=== PATIENT | female | born 1960 | race Caucasian/White ===

== ENCOUNTER 2017-09-08 04:28 | Emergency (ER) | payer MEDICARE ==
--- OUTSIDE RECORDS SUMMARY | 2017-09-08 04:31 | XMS REPORT ---
:1960 Author Organization eClinicalWorks Care Team Providers Name Role Phone Mynor Erwin Provider Role Unavailable Allergies No Known Allergies Problems Problem Type Condition Code Onset Dates Condition Status Problem Hypercholesteremia E78.00 Active Problem Osteoarthritis of knee M17.9 Active Problem Internal hemorrhoids K64.8 Active Problem Asthma J45.909 Active Problem Depression F32.9 Active Problem Anxiety F41.9 Active Problem Diabetes type 2, controlled E11.9 Active Problem Bipolar disorder F31.9 Active Problem Chronic pancreatitis K86.1 Active Problem Colonic polyp K63.5 Active Assessment Primary insomnia F51.01 Active Assessment Depression F32.9 Active Assessment Bipolar disorder F31.9 Active Assessment Diabetes type 2, controlled E11.9 Active Assessment Asthma J45.909 Active Problem Primary insomnia F51.01 Active Assessment Hypercholesteremia E78.00 Active Problem Diverticulosis of colon without K57.30 Active diverticulitis Medications Medication Code Code Instructions Start End Status Dosage System Date Date Geodon [facility] 08547080629 80 MG Orally Active 1 capsule Twice a day with food Benztropine ND 66646368950 2 MG Orally Once Active 1 tablet Mesylate a day at bedtime Vistaril ND 85071836985 25 MG Orally Active 1 capsule every 8 hrs as needed Trazodone HCl ND 25962724793 50 MG Orally Active 1 tablet Once a day at bedtime as needed Ventolin HFA [facility] 33643801586 90 MCG/ACT Active 2 puffs as Inhalation every needed 6 hrs Results No Known Results Summary Purpose eClinicalWorks Submission
[2017-09-08] MEDS ORDERED: NA CHLORIDE 0.9% 1,000 ML ONE (04:59)
[2017-09-08 05:22] LABS: Absolute Lymphocytes (CBC) 1.2 K/uL (0.7-4.9); Absolute Monocytes 0.3 K/uL (0.1-1.3); Absolute Neutrophil 6.7 K/uL (1.8-8.0); Basophils % 0.2 % (0-1.3); Hematocrit 37.5 % (36.0-45.0); Lymphocytes % 14.2 % (15.3-44.8); MCH 32.2 pg (27.0-35.0); MCV 95.1 fL (80-100); MPV 7.6 fL (7.6-11.3); RBC Red Blood Cell Count 3.95 M/uL (3.86-4.86)
[2017-09-08 05:35] LABS: Potassium 3.8 mEq/L (3.6-5.0)
[2017-09-08 05:41] LABS: Albumin 3.7 g/dL (3.2-5.5); Bilirubin Direct 0.1 mg/dL (0-0.2); Bilirubin Total 0.6 mg/dL (0.3-1.2); Protein, Total 6.7 g/dL (6.0-8.3)
--- NOTE | 2017-09-08 05:54 | ER ---
Nurse's Notes [facility] Name: Torie Das Age: 57 yrs Sex: Female : 1960 Arrival Date: 09/08/2017 Time: 04:38 Bed 15 Private MD: Diagnosis: Abdominal pain Presentation: 09/08 04:26 Presenting complaint: EMS states: "Patient c/o abdominal street that started last night bs1 around 2200, reports nausea and diarrhea, denies vomiting, blood pressure 99/66.". Transition of care: patient was not received from another setting of care. Onset of symptoms was September 07, 2017 at 22:00. Risk Assessment: Do you want to hurt yourself or someone else? Patient reports no desire to harm self or others. Initial Sepsis Screen: Does the patient meet any 2 criteria? No. Patient's initial sepsis screen is negative. Does the patient have a suspected source of infection? No. Patient's initial sepsis screen is negative. Care prior to arrival: Glucose check: 137. 04:26 Method Of Arrival: EMS: [facility] bs1 04:26 Acuity: PRISCILA 3 bs1 Historical: - Allergies: 04:43 Nubain; bs1 04:43 Sudafed; bs1 - Home Meds: 04:43 Benztropine Mesylate Oral [Active]; Geodon 160 mg at night and 20 mg in the morning bs1 Oral [Active]; Trazodone Oral [Active]; Hydroxyzine Oral [Active]; - PMHx: 04:43 Bipolar disorder; Diabetes - NIDDM; Pancreatitis; bs1 - PSHx: 04:43 Cholecystectomy; Appendectomy; Tonsillectomy; bs1 - Immunization history:: Adult Immunizations not up to date. - Social history:: Smoking status: Patient/guardian denies using tobacco. - Ebola Screening: : Patient negative for fever greater than or equal to 101.5 degrees Fahrenheit, and additional compatible Ebola Virus Disease symptoms Patient denies exposure to infectious person. Screenin:44 Abuse screen: Denies threats or abuse. Denies injuries from another. Nutritional bs1 screening: No deficits noted. Tuberculosis screening: No symptoms or risk factors identified. Fall Risk None identified. Assessment: 04:45 General: Appears in no apparent distress. uncomfortable, unkempt, Behavior is bs1 cooperative, anxious. Pain: Complains of pain in bilateral lower abdomen Pain does not radiate. Neuro: Level of Consciousness is awake, alert, obeys commands, Oriented to person, place, time. Cardiovascular: Denies chest pain, shortness of breath, Heart tones S1 S2 present Capillary refill < 3 seconds Patient's skin is warm and dry. Respiratory: Airway is patent Trachea midline Respiratory effort is even, unlabored, Respiratory pattern is regular, symmetrical, Breath sounds are clear bilaterally. GI: Abdomen is flat, non-distended, Bowel sounds present X 4 quads. Abd is soft X 4 quads Abdomen is tender to palpation in right lower quadrant and left lower quadrant Reports lower abdominal pain, diarrhea, nausea. : No signs and/or symptoms were reported regarding the genitourinary system. EENT: No signs and/or symptoms were reported regarding the EENT system. Derm: Skin is intact, Skin is pink, warm \\T\\ dry. Musculoskeletal: Circulation, motion, and sensation intact. Capillary refill < 3 seconds, Range of motion: intact in all extremities. 05:45 Reassessment: Patient appears in no apparent distress at this time. Patient and/or bs1 family updated on plan of care and expected duration. Pain level reassessed. Patient is alert, oriented x 3, equal unlabored respirations, skin warm/dry/pink. 06:15 Reassessment: Patient appears in no apparent distress at this time. Patient and/or bs1 family updated on plan of care and expected duration. Pain level reassessed. Patient is alert, oriented x 3, equal unlabored respirations, skin warm/dry/pink. Patient states symptoms have improved. Vital Signs: 04:30 BP 96 / 70; Pulse 63; Resp 15; Temp 97.8(O); Pulse Ox 97% on R/A; Weight 65.77 kg; bs1 Height 5 ft. 5 in. (165.10 cm); Pain 8/10; 05:30 BP 109 / 66; Pulse 55; Resp 16; Pulse Ox 97% on R/A; bs1 06:05 BP 115 / 70; Pulse 53; Resp 16; Pulse Ox 99% on R/A; Pain 3/10; bs1 04:30 Body Mass Index 24.13 (65.77 kg, 165.10 cm) bs1 ED Course: 04:38 Patient arrived in ED. bs1 04:40 Kulkarni, Pin, MD is Attending Physician. pkl 04:41 Triage completed. bs1 04:44 Patient has correct armband on for positive identification. Bed in low position. Call bs1 light in reach. Side rails up X 1. Pulse ox on. NIBP on. Warm blanket given. Pillow given. 04:47 Arm band placed on left wrist. bs1 04:56 Eunice Malhotra, RN is Primary Nurse. bs1 05:05 Inserted saline lock: 20 gauge in left antecubital area, using aseptic technique. Blood bs1 collected. 06:15 No provider procedures requiring assistance completed. IV discontinued, bleeding bs1 controlled, No redness/swelling at site. Pressure dressing applied. Administered Medications: 05:08 Drug: NS 0.9% 1000 ml Route: IV; Rate: 1000 ml; Site: left antecubital; bs1 06:15 Follow up: IV Status: Completed infusion bs1 Outcome: 05:54 Discharge ordered by . pkl 06:16 Discharged to home ambulatory. bs1 06:16 Condition: stable 06:16 Discharge instructions given to patient, Instructed on discharge instructions, follow up and referral plans. Demonstrated understanding of instructions, follow-up care. 06:17 Patient left the ED. bs1 Signatures: Mati Kulkarni MD MD pkEunice Phan, RN RN bs1
--- NOTE | 2017-09-08 05:54 | EDPHYS ---
Physician Documentation [facility] Name: Torie Das Age: 57 yrs Sex: Female : 1960 Arrival Date: 09/08/2017 Time: 04:38 Bed 15 Private MD: ED Physician Mati Kulkarni HPI: 09/08 04:46 This 57 yrs old Female presents to ER via EMS with complaints of Abd Pain > pkl 50 y/o. 04:46 The patient presents with abdominal pain in the upper abdomen. Onset: The pkl symptoms/episode began/occurred just prior to arrival, 6 hour(s) ago. The symptoms do not radiate. Associated signs and symptoms: Pertinent positives: diarrhea. Historical: - Allergies: 04:43 Nubain; bs1 04:43 Sudafed; bs1 - Home Meds: 04:43 Benztropine Mesylate Oral [Active]; Geodon 160 mg at night and 20 mg in the morning bs1 Oral [Active]; Trazodone Oral [Active]; Hydroxyzine Oral [Active]; - PMHx: 04:43 Bipolar disorder; Diabetes - NIDDM; Pancreatitis; bs1 - PSHx: 04:43 Cholecystectomy; Appendectomy; Tonsillectomy; bs1 - Immunization history:: Adult Immunizations not up to date. - Social history:: Smoking status: Patient/guardian denies using tobacco. - Ebola Screening: : Patient negative for fever greater than or equal to 101.5 degrees Fahrenheit, and additional compatible Ebola Virus Disease symptoms Patient denies exposure to infectious person. ROS: 04:46 Eyes: Negative for injury, pain, redness, and discharge, ENT: Negative for injury, pkl pain, and discharge, Neck: Negative for injury, pain, and swelling, Cardiovascular: Negative for chest pain, palpitations, and edema, Respiratory: Negative for shortness of breath, cough, wheezing, and pleuritic chest pain. 04:46 Abdomen/GI: Positive for abdominal pain, diarrhea, of the right upper quadrant and left upper quadrant. 04:46 Back: Negative for acute changes. 04:46 : Negative for urinary symptoms. 04:46 MS/extremity: Negative for acute changes. 04:46 Skin: Negative for rash. 04:46 Neuro: Negative for altered mental status. Exam: 04:46 Head/Face: Normocephalic, atraumatic. Eyes: Pupils equal round and reactive to light, pkl extra-ocular motions intact. Lids and lashes normal. Conjunctiva and sclera are non-icteric and not injected. Cornea within normal limits. Periorbital areas with no swelling, redness, or edema. ENT: Nares patent. No nasal discharge, no septal abnormalities noted. Tympanic membranes are normal and external auditory canals are clear. Oropharynx with no redness, swelling, or masses, exudates, or evidence of obstruction, uvula midline. Mucous membranes moist. Neck: Trachea midline, no thyromegaly or masses palpated, and no cervical lymphadenopathy. Supple, full range of motion without nuchal rigidity, or vertebral point tenderness. No Meningismus. Chest/axilla: Normal chest wall appearance and motion. Nontender with no deformity. No lesions are appreciated. Cardiovascular: Regular rate and rhythm with a normal S1 and S2. No gallops, murmurs, or rubs. Normal PMI, no JVD. No pulse deficits. Respiratory: Lungs have equal breath sounds bilaterally, clear to auscultation and percussion. No rales, rhonchi or wheezes noted. No increased work of breathing, no retractions or nasal flaring. Abdomen/GI: Soft, non-tender, with normal bowel sounds. No distension or tympany. No guarding or rebound. No evidence of tenderness throughout. Back: No spinal tenderness. No costovertebral tenderness. Full range of motion. Skin: Warm, dry with normal turgor. Normal color with no rashes, no lesions, and no evidence of cellulitis. MS/ Extremity: Pulses equal, no cyanosis. Neurovascular intact. Full, normal range of motion. Neuro: Awake and alert, GCS 15, oriented to person, place, time, and situation. Cranial nerves II-XII grossly intact. Motor strength 5/5 in all extremities. Sensory grossly intact. Cerebellar exam normal. Normal gait. Vital Signs: 04:30 BP 96 / 70; Pulse 63; Resp 15; Temp 97.8(O); Pulse Ox 97% on R/A; Weight 65.77 kg; bs1 Height 5 ft. 5 in. (165.10 cm); Pain 8/10; 05:30 BP 109 / 66; Pulse 55; Resp 16; Pulse Ox 97% on R/A; bs1 06:05 BP 115 / 70; Pulse 53; Resp 16; Pulse Ox 99% on R/A; Pain 3/10; bs1 04:30 Body Mass Index 24.13 (65.77 kg, 165.10 cm) bs1 MDM: 04:40 Patient medically screened. pkl 05:53 Data reviewed: vital signs, nurses notes, lab test result(s). pkl 09/08 04:45 Order name: Amylase, Serum; Complete Time: 05:50 pkl 09/08 04:45 Order name: Basic Metabolic Panel; Complete Time: 05:50 pkl 09/08 04:45 Order name: CBC with Diff; Complete Time: :50 pkl 09/08 04:45 Order name: Creatinine for Radiology; Complete Time: pkl 09/08 04:45 Order name: Hepatic Function; Complete Time: 05: pkl 09/08 04:45 Order name: Lipase; Complete Time: 05:50 pkl 09/08 04:45 Order name: IV Saline Lock; Complete Time: 05:11 pkl 09/08 04:45 Order name: Labs collected and sent; Complete Time: 05:11 pkl Administered Medications: 05:08 Drug: NS 0.9% 1000 ml Route: IV; Rate: 1000 ml; Site: left antecubital; bs1 06:15 Follow up: IV Status: Completed infusion bs1 Disposition: 09/08/17 05:54 Discharged to Home. Impression: Abdominal pain. - Condition is Stable. - Medication Reconciliation Form, Thank You Letter, Antibiotic Education, Prescription Opioid Use form. - Follow up: Private Physician; When: 2 - 3 days; Reason: Re-evaluation by your physician. - Problem is new. - Symptoms have improved. Signatures: Dispatcher [employer] EDMS Mati Kulkarni MD MD pkEunice Phan RN RN bs1 Corrections: (The following items were deleted from the chart) 06:17 05:54 09/08/2017 05:54 Discharged to Home. Impression: Abdominal pain. Condition is bs1 Stable. Forms are Medication Reconciliation Form, Thank You Letter, Antibiotic Education, Prescription Opioid Use. Follow up: Private Physician; When: 2 - 3 days; Reason: Re-evaluation by your physician. Problem is new. Symptoms have improved. pkl
[2017-09-08 06:22] VITALS: TEMP 97.8
[2017-09-08 06:25] VITALS: BP 115/70; O2SAT 99
== END 2017-09-08 06:17 | disposition home or self-care (01) ==
LOC: ER 04:28
DX: R10.9 Unspecified abdominal pain (principal); E11.9 Type 2 diabetes mellitus without complications; Z88.6 Allergy status to analgesic agent; Z88.8 Allergy status to other drugs, medicaments and biological substances
CPT/HCPCS: 36415; 80048; 80076; 82150; 83690; 85025; 96360; 99284; J7030

== ENCOUNTER 2018-07-30 12:46 | Emergency (ER) | payer MEDICARE ==
--- OUTSIDE RECORDS SUMMARY | 2018-07-30 12:49 | XMS REPORT ---
:1960 Author Organization eClinicalWorks Care Team Providers Name Role Phone Erwin Lowe Provider Role Unavailable Allergies No Known Allergies Problems Problem Type Condition Code Onset Dates Condition Status Problem Colonic polyp K63.5 Active Problem Depression F32.9 Active Problem Chronic pancreatitis K86.1 Active Problem Encounter for gynecological Z01.419 Active examination without abnormal finding Problem Breast lump N63.0 Active Problem Encounter for screening mammogram Z12.31 Active for breast cancer Problem Anxiety F41.9 Active Problem Asthma J45.909 Active Problem Diverticulosis of colon without K57.30 Active diverticulitis Problem Hypercholesteremia E78.00 Active Problem Internal hemorrhoids K64.8 Active Problem Osteoarthritis of knee M17.9 Active Problem Bipolar disorder F31.9 Active Problem Primary insomnia F51.01 Active Problem Diabetes type 2, controlled E11.9 Active Medications No Known Medications Results No Known Results Summary Purpose [id number] Submission
--- OUTSIDE RECORDS SUMMARY | 2018-07-30 12:49 | XMS REPORT ---
:1960 Author Organization eClinicalupad Care Team Providers Name Role Phone Erwin Lowe Provider Role Unavailable Allergies No Known Allergies Problems Problem Type Condition Code Onset Dates Condition Status Problem Hypercholesteremia E78.00 Active Problem Osteoarthritis of knee M17.9 Active Problem Internal hemorrhoids K64.8 Active Problem Primary insomnia F51.01 Active Problem Diverticulosis of colon without K57.30 Active diverticulitis Problem Asthma J45.909 Active Problem Depression F32.9 Active Problem Anxiety F41.9 Active Problem Diabetes type 2, controlled E11.9 Active Problem Bipolar disorder F31.9 Active Problem Chronic pancreatitis K86.1 Active Problem Colonic polyp K63.5 Active Medications No Known Medications Results No Known Results Summary Purpose [employer] Submission
--- OUTSIDE RECORDS SUMMARY | 2018-07-30 12:49 | XMS REPORT ---
:1960 Author Organization eClinicalWorks Care Team Providers Name Role Phone Mynor Erwin Provider Role Unavailable Allergies, Adverse Reactions, Alerts Substance Reaction Event Type Sudafed Info Not Available Drug Allergy Nubain Info Not Available Drug Allergy Problems Problem Type Condition Code Onset Dates Condition Status Problem Chronic pancreatitis K86.1 Active Problem Asthma J45.909 Active Problem Depression F32.9 Active Problem Encounter for screening mammogram Z12.31 Active for breast cancer Problem Encounter for gynecological Z01.419 Active examination without abnormal finding Problem Mild cognitive impairment with G31.84 Active memory loss Problem Hypercholesteremia E78.00 Active Problem Anxiety F41.9 Active Problem Breast lump N63.0 Active Problem Diverticulosis of colon without K57.30 Active diverticulitis Assessment Anterior epistaxis R04.0 Active Assessment Need for influenza vaccination Z23 Active Assessment Mild cognitive impairment with G31.84 Active memory loss Problem Osteoarthritis of knee M17.9 Active Problem Bipolar disorder F31.9 Active Problem Primary insomnia F51.01 Active Problem Diabetes type 2, controlled E11.9 Active Problem Internal hemorrhoids K64.8 Active Problem Colonic polyp K63.5 Active Medications Medication Code Code Instructions Start End Status Dosage System Date Date Trazodone HCl [facility] 91526475053 50 MG Orally Active 1 tablet Once a day at bedtime as needed Vistaril [facility] 84630038593 25 MG Orally Active 1 capsule every 8 hrs as needed Geodon [facility] 62712455674 80 MG Orally Active 1 capsule Twice a day with food Benztropine [facility] 40450378158 2 MG Orally Once Active 1 tablet Mesylate a day at bedtime Ventolin HFA [facility] 71728708458 90 MCG/ACT Active 2 puffs as Inhalation every needed 6 hrs Results No Known Results Immunizations Vaccine Administration Date Afluria Apr 07, 2018 Summary Purpose eClinicalWorks Submission
--- OUTSIDE RECORDS SUMMARY | 2018-07-30 12:49 | XMS REPORT ---
:1960 Author Organization eClinicalWorks Care Team Providers Name Role Phone Mynor Erwin Provider Role Unavailable Allergies No Known Allergies Problems Problem Type Condition Code Onset Dates Condition Status Problem Colonic polyp K63.5 Active Problem Depression F32.9 Active Problem Chronic pancreatitis K86.1 Active Problem Encounter for gynecological Z01.419 Active examination without abnormal finding Assessment Depression F32.9 Active Problem Breast lump N63.0 Active Assessment Primary insomnia F51.01 Active Assessment Chronic pancreatitis K86.1 Active Problem Encounter for screening mammogram Z12.31 Active for breast cancer Problem Anxiety F41.9 Active Problem Asthma J45.909 Active Problem Diverticulosis of colon without K57.30 Active diverticulitis Problem Hypercholesteremia E78.00 Active Assessment Bipolar disorder F31.9 Active Assessment Diabetes type 2, controlled E11.9 Active Assessment Asthma J45.909 Active Assessment Hypercholesteremia E78.00 Active Problem Internal hemorrhoids K64.8 Active Problem Osteoarthritis of knee M17.9 Active Problem Bipolar disorder F31.9 Active Problem Primary insomnia F51.01 Active Problem Diabetes type 2, controlled E11.9 Active Medications Medication Code Code Instructions Start End Status Dosage System Date Date Vistaril [facility] 73587432586 25 MG Orally Active 1 capsule every 8 hrs as needed Trazodone HCl [facility] 31346019513 50 MG Orally Active 1 tablet Once a day at bedtime as needed Geodon [facility] 50783612889 80 MG Orally Active 1 capsule Twice a day with food Benztropine ND 46623512395 2 MG Orally Once Active 1 tablet Mesylate a day at bedtime Ventolin HFA [facility] 81090309182 90 MCG/ACT Active 2 puffs as Inhalation every needed 6 hrs Results No Known Results Summary Purpose eClinicalWorks Submission
--- OUTSIDE RECORDS SUMMARY | 2018-07-30 12:49 | XMS REPORT ---
:1960 Author Organization eClinicalWorks Care Team Providers Name Role Phone Amadou Luke Provider Role Unavailable Allergies, Adverse Reactions, Alerts [...] Active diverticulitis Problem Hypercholesteremia E78.00 Active Assessment Encounter for screening mammogram Z12.31 Active for breast cancer Assessment Encounter for gynecological Z01.419 Active examination without abnormal finding Assessment Breast lump N63.0 Active Problem Internal hemorrhoids K64.8 Active Problem Osteoarthritis of knee M17.9 Active Problem Bipolar disorder F31.9 Active Problem Primary insomnia F51.01 Active Problem Diabetes type 2, controlled E11.9 Active Medications Medication Code Code Instructions Start End Status Dosage System Date Date Geodon [facility] 19569909088 80 MG Orally Active 1 capsule Twice a day with food Trazodone HCl [facility] 83789728526 50 MG Orally Active 1 tablet Once a day at bedtime as needed Benztropine ND 56612549899 2 MG Orally Once Active 1 tablet Mesylate a day at bedtime Ventolin HFA [facility] 03345559100 90 MCG/ACT Active 2 puffs as Inhalation every needed 6 hrs Vistaril [facility] 26756934655 25 MG Orally Active 1 capsule every 8 hrs as needed Results No Known Results Summary Purpose eClinicalWorks Submission
--- OUTSIDE RECORDS SUMMARY | 2018-07-30 12:49 | XMS REPORT ---
[...] Active diverticulitis Problem Hypercholesteremia E78.00 Active Assessment Onychomycosis B35.1 Active Assessment Nail deformity L60.8 Active Problem Internal hemorrhoids K64.8 Active Problem Osteoarthritis of knee M17.9 Active Problem Bipolar disorder F31.9 Active Problem Primary insomnia F51.01 Active Problem Diabetes type 2, controlled E11.9 Active Medications Medication Code Code Instructions Start End Status Dosage System Date Date Benztropine [facility] 29470388341 2 MG Orally Once Active 1 tablet Mesylate a day at bedtime Vistaril ND 91864447345 25 MG Orally Active 1 capsule every 8 hrs as needed Ventolin HFA ND 70751283041 90 MCG/ACT Active 2 puffs as Inhalation every needed 6 hrs Trazodone HCl ND 11061270912 50 MG Orally Active 1 tablet Once a day at bedtime as needed Geodon ND 67594278940 80 MG Orally Active 1 capsule Twice a day with food Results No Known Results Summary Purpose eClinicalWorks Submission
--- OUTSIDE RECORDS SUMMARY | 2018-07-30 12:50 | XMS REPORT ---
:1960 Author Organization eClinicalWorks Care Team Providers Name Role Phone Ace Loweh Provider Role Unavailable Allergies, Adverse Reactions, Alerts Substance Reaction Event Type Sudafed Info Not Available Drug Allergy Nubain Info Not Available Drug Allergy Problems Problem Type Condition Code Onset Dates Condition Status Problem Depression F32.9 Active Problem Anxiety F41.9 Active Problem Asthma J45.909 Active Problem Mild cognitive impairment with G31.84 Active memory loss Assessment Hypercholesteremia E78.00 Active Problem Encounter for screening mammogram Z12.31 Active for breast cancer Assessment Asthma J45.909 Active Assessment Depression F32.9 Active Problem Mild intermittent asthma with J45.21 Active exacerbation Problem Diverticulosis of colon without K57.30 Active diverticulitis Problem Hypercholesteremia E78.00 Active Problem Encounter for gynecological Z01.419 Active examination without abnormal finding Problem Breast lump N63.0 Active Problem Primary insomnia F51.01 Active Assessment Bipolar disorder F31.9 Active Assessment Diabetes type 2, controlled E11.9 Active Problem Bipolar disorder F31.9 Active Problem Diabetes type 2, controlled E11.9 Active Assessment Chronic pancreatitis K86.1 Active Problem Internal hemorrhoids K64.8 Active Problem Colonic polyp K63.5 Active Assessment Primary insomnia F51.01 Active Problem Osteoarthritis of knee M17.9 Active Problem Chronic pancreatitis K86.1 Active Medications Medication Code Code Instructions Start End Status Dosage System Date Date Vistaril [facility] 09552658511 25 MG Orally Active 1 capsule every 8 hrs as needed Geodon [facility] 41021204513 80 MG Orally Active 1 capsule Twice a day with food Trazodone HCl [facility] 36327805662 50 MG Orally Active 1 tablet Once a day at bedtime as needed Ventolin HFA [facility] 64998851842 90 MCG/ACT Active 2 puffs as Inhalation every needed 6 hrs Benztropine [facility] 37974365668 2 MG Orally Once Active 1 tablet Mesylate a day at bedtime Results No Known Results Summary Purpose eClinicalWorks Submission
--- OUTSIDE RECORDS SUMMARY | 2018-07-30 12:50 | XMS REPORT ---
[...] of colon without K57.30 Active diverticulitis Problem Osteoarthritis of knee M17.9 Active Problem Bipolar disorder F31.9 Active Problem Primary insomnia F51.01 Active Problem Diabetes type 2, controlled E11.9 Active Problem Internal hemorrhoids K64.8 Active Problem Colonic polyp K63.5 Active Medications No Known Medications Results No Known Results Summary Purpose [employer]ion Submission
--- OUTSIDE RECORDS SUMMARY | 2018-07-30 12:50 | XMS REPORT ---
[...] impairment with G31.84 Active memory loss Problem Encounter for screening mammogram Z12.31 Active for breast cancer Problem Mild intermittent asthma with J45.21 Active exacerbation Problem Diverticulosis of colon without K57.30 Active diverticulitis Problem Hypercholesteremia E78.00 Active Problem Encounter for gynecological Z01.419 Active examination without abnormal finding Problem Breast lump N63.0 Active Problem Primary insomnia F51.01 Active Assessment Mild intermittent asthma with J45.21 Active exacerbation Problem Bipolar disorder F31.9 Active Problem Diabetes type 2, controlled E11.9 Active Problem Internal hemorrhoids K64.8 Active Problem Colonic polyp K63.5 Active Problem Osteoarthritis of knee M17.9 Active Problem Chronic pancreatitis K86.1 Active Medications Medication Code Code Instructions Start End Status Dosage System Date Date Vistaril [facility] 56712543936 25 MG Orally Active 1 capsule every 8 hrs as needed Trazodone HCl [facility] 62128075039 50 MG Orally Active 1 tablet Once a day at bedtime as needed PredniSONE NDC 0 Active not defined Geodon [facility] 07256412652 80 MG Orally Active 1 capsule Twice a day with food Results No Known Results Summary Purpose eClinicalWorks Submission
--- OUTSIDE RECORDS SUMMARY | 2018-07-30 12:50 | XMS REPORT ---
[...] of colon without K57.30 Active diverticulitis Assessment Generalized abdominal pain R10.84 Active Assessment Chronic pancreatitis K86.1 Active Assessment Nausea R11.0 Active Problem Osteoarthritis of knee M17.9 Active Problem Bipolar disorder F31.9 Active Problem Primary insomnia F51.01 Active Problem Diabetes type 2, controlled E11.9 Active Problem Internal hemorrhoids K64.8 Active Problem Colonic polyp K63.5 Active Medications Medication Code Code Instructions Start End Status Dosage System Date Date Trazodone HCl [facility] 66208169894 50 MG Orally Active 1 tablet Once a day at bedtime as needed Benztropine [facility] 31210600834 2 MG Orally Once Active 1 tablet Mesylate a day at bedtime Vistaril [facility] 12063626836 25 MG Orally Active 1 capsule every 8 hrs as needed Ventolin HFA [facility] 15601432956 90 MCG/ACT Active 2 puffs as Inhalation every needed 6 hrs Geodon [facility] 22193816804 80 MG Orally Active 1 capsule Twice a day with food Results No Known Results Summary Purpose eClinicalWorks Submission
--- OUTSIDE RECORDS SUMMARY | 2018-07-30 12:50 | XMS REPORT ---
:1960 Author Organization eClinicalWorks Care Team Providers Name Role Phone Amadou Luke Provider Role Unavailable Allergies, Adverse Reactions, Alerts Substance Reaction Event Type Sudafed Info Not Available Drug Allergy Nubain Info Not Available Drug Allergy Problems Problem Type Condition Code Onset Dates Condition Status Problem Diabetes type 2, controlled E11.9 Active Problem Hypercholesteremia E78.00 Active Problem Colonic polyp K63.5 Active Problem Mild intermittent asthma with J45.21 Active exacerbation Assessment Encounter for screening mammogram Z12.31 Active for breast cancer Problem Mild cognitive impairment with G31.84 Active memory loss Assessment Postmenopausal bleeding N95.0 Active Problem Postmenopausal bleeding N95.0 Active Problem Breast lump N63.0 Active Problem Diverticulosis of colon without K57.30 Active diverticulitis Problem Encounter for screening mammogram Z12.31 Active for breast cancer Problem Encounter for gynecological Z01.419 Active examination without abnormal finding Problem Primary insomnia F51.01 Active Problem Chronic pancreatitis K86.1 Active Assessment Encounter for gynecological Z01.419 Active examination without abnormal finding Problem Anxiety F41.9 Active Problem Internal hemorrhoids K64.8 Active Problem Depression F32.9 Active Problem Osteoarthritis of knee M17.9 Active Problem Asthma J45.909 Active Problem Bipolar disorder F31.9 Active Medications Medication Code Code Instructions Start End Status Dosage System Date Date Ventolin HFA [facility] [id number] 90 MCG/ACT Active 2 puffs as Inhalation every needed 6 hrs Benztropine ND 26187584741 2 MG Orally Once Active 1 tablet Mesylate a day at bedtime Vistaril ND 73152478136 25 MG Orally Active 1 capsule every 8 hrs as needed Trazodone HCl ND 05339728298 50 MG Orally Active 1 tablet Once a day at bedtime as needed Geodon [facility] 74993917927 80 MG Orally Active 1 capsule Twice a day with food Results No Known Results Summary Purpose eClinicalWorks Submission
--- OUTSIDE RECORDS SUMMARY | 2018-07-30 12:50 | XMS REPORT ---
[...] N63.0 Active Problem Primary insomnia F51.01 Active Problem Bipolar disorder F31.9 Active Problem Diabetes type 2, controlled E11.9 Active Problem Internal hemorrhoids K64.8 Active Problem Colonic polyp K63.5 Active Problem Osteoarthritis of knee M17.9 Active Problem Chronic pancreatitis K86.1 Active Medications No Known Medications Results No Known Results Summary Purpose eClinicalWorks Submission
[2018-07-30 13:36] LABS: Absolute Monocytes 0.2 K/uL (0.1-1.3); Absolute Neutrophil 6.1 K/uL (1.8-8.0); Basophils % 0.1 % (0-1.3); Hematocrit 39.4 % (36.0-45.0); Lymphocytes % 13.5 % (15.3-44.8); MPV 7.5 fL (7.6-11.3); RBC Red Blood Cell Count 4.12 M/uL (3.86-4.86)
[2018-07-30 13:51] LABS: ALT/SGPT 120 U/L (12-78); AST/SGOT 173 U/L (15-37); Albumin 3.3 g/dL (3.4-5.0); Alkaline Phosphatase 97 U/L (45-117); BUN Blood Urea Nitrogen 16 mg/dL (7-18); Bicarbonate 25 mmol/L (21-32); Bilirubin Direct < 0.1 mg/dL (0-0.2); Bilirubin Total 0.4 mg/dL (0.2-1.0); Glucose Level 156 mg/dL (74-106); Lipase 172 U/L (73-393); Potassium 3.5 mmol/L (3.5-5.1); Protein, Total 6.8 g/dL (6.4-8.2); Sodium Level 142 mmol/L (136-145)
--- NOTE | 2018-07-30 13:56 | ER ---
Nurse's Notes [facility] Name: Torie Das Age: 58 yrs Sex: Female : 1960 Arrival Date: 07/30/2018 Time: 12:49 Bed 14 Private MD: Diagnosis: Upper abdominal pain, unspecified Presentation: 07/30 12:49 Presenting complaint: EMS states: C/O abdominal pain that began at 0400 this morning, ph reports hx of pancreatitis and states she believes that is the cause of her pain, also reports N/D denies vomitting. Transition of care: patient was not received from another setting of care. Onset of symptoms was July 30, 2018. Risk Assessment: Do you want to hurt yourself or someone else? Patient reports no desire to harm self or others. Initial Sepsis Screen: Does the patient meet any 2 criteria? No. Patient's initial sepsis screen is negative. Does the patient have a suspected source of infection? No. Patient's initial sepsis screen is negative. Care prior to arrival: None. 12:49 Method Of Arrival: EMS: [facility] ph 12:49 Acuity: PRISCILA 3 ph Historical: - Allergies: 12:53 Nubain; ph 12:53 Sudafed; ph - Home Meds: 12:53 Benztropine Mesylate Oral [Active]; Geodon 160 mg at night and 20 mg in the morning ph Oral [Active]; Hydroxyzine Oral [Active]; - PMHx: 12:53 Bipolar disorder; Diabetes - NIDDM; Pancreatitis; ph - PSHx: 12:53 Cholecystectomy; Appendectomy; Tonsillectomy; ph - Immunization history:: Adult Immunizations unknown. - Social history:: Smoking status: Patient/guardian denies using tobacco, Patient/guardian denies using alcohol. - Ebola Screening: : No symptoms or risks identified at this time. Screenin:57 Abuse screen: Denies threats or abuse. Denies injuries from another. Nutritional ph screening: No deficits noted. Tuberculosis screening: No symptoms or risk factors identified. Fall Risk None identified. Assessment: 13:10 General: Appears in no apparent distress. comfortable, slender, well groomed, Behavior ph is calm, cooperative, appropriate for age, Reports chills for fever for. Pain: Complains of pain in left upper quadrant and right upper quadrant. Neuro: Level of Consciousness is awake, alert, obeys commands, Oriented to person, place, time, situation. Cardiovascular: Capillary refill < 3 seconds in bilateral fingers Patient's skin is warm and dry. Respiratory: Airway is patent Respiratory effort is even, unlabored, Respiratory pattern is regular, symmetrical. GI: Abdomen is non-distended, Bowel sounds present X 4 quads. Abd is soft X 4 quads Abdomen is tender to palpation in right upper quadrant and left upper quadrant Reports upper abdominal pain, diarrhea, nausea, Patient currently denies vomiting. Derm: Skin is intact, is healthy with good turgor, Skin is pink, warm \\T\\ dry. Musculoskeletal: Circulation, motion, and sensation intact. Range of motion: intact in all extremities. 13:59 Reassessment: Patient appears in no apparent distress at this time. Patient and/or ph family updated on plan of care and expected duration. Pain level reassessed. Patient is alert, oriented x 3, equal unlabored respirations, skin warm/dry/pink. D/C pending completion of IV fluid bolus. 14:28 Reassessment: Patient appears in no apparent distress at this time. Patient and/or ph family updated on plan of care and expected duration. Pain level reassessed. Patient is alert, oriented x 3, equal unlabored respirations, skin warm/dry/pink. Attempted to d/c pt and pt states, " I know they said that everything looks okay but the last time it was my pancreas I laid in bed for 3 days waiting for it to go away and then I became septic. I don't want something like that to happen again and I was wondering if this pain can be investigated further." ERP notified of pt's concern. Vital Signs: 12:51 BP 108 / 76; Pulse 72; Resp 18; Temp 97.8; Pulse Ox 100% on R/A; Weight 72.57 kg; ph Height 5 ft. 5 in. (165.10 cm); Pain 5/10; 14:00 BP 111 / 76; Pulse 76; Resp 18; Temp 97.8; Pulse Ox 98% on R/A; ph 15:00 BP 107 / 74; Pulse 74; Resp 18; Temp 98.0; Pulse Ox 99% on R/A; ph 12:51 Body Mass Index 26.63 (72.57 kg, 165.10 cm) ph ED Course: 12:49 Patient arrived in ED. ph 12:51 Triage completed. ph 12:52 Cindy Mcgowan FNP-C is [facility]. kb 12:52 Jono Ball MD is Attending Physician. kb 12:54 Arm band placed on Patient placed in an exam room, on a stretcher, on pulse oximetry. ph 13:03 Initial lab(s) drawn, by me, sent to lab. Maintain EMS IV. Dressing intact. Good blood ms return noted. Site clean \\T\\ dry. Gauge \\T\\ site: 20 Left Forearm. IV is intact, with good blood return, Changed dressing on left forearm Flushed left forearm. 13:30 Kenzie Morocho, RN is Primary Nurse. ph 13:57 Patient has correct armband on for positive identification. Placed in gown. Bed in low ph position. Call light in reach. Side rails up X 1. Pulse ox on. NIBP on. Door closed. Noise minimized. Warm blanket given. 13:59 No provider procedures requiring assistance completed. ph 14:00 IV discontinued, intact, bleeding controlled, No redness/swelling at site. Pressure ph dressing applied. Administered Medications: 13:55 Drug: NS 0.9% 1000 ml Route: IV; Rate: 1000 ml; Site: left antecubital; ph 14:40 Follow up: Response: No adverse reaction; IV Status: Completed infusion ph 13:55 Drug: Zofran 4 mg Route: IVP; Site: left antecubital; ph 14:41 Follow up: Response: No adverse reaction ph 13:55 Drug: morphine 4 mg Route: IVP; Site: left antecubital; ph 14:42 Follow up: Response: No adverse reaction; Pain is decreased ph Outcome: 13:56 Discharge ordered by . kb 15:03 Patient left the ED. ph 15:03 Discharged to home ambulatory. ph 15:03 Condition: good 15:03 Discharge instructions given to patient, Instructed on discharge instructions, follow up and referral plans. medication usage, Demonstrated understanding of instructions, follow-up care, medications, Prescriptions given X 2. Signatures: Cindy Mcgowan FNP-C FNP-Zulema Sanchez ms Kenzie Morocho, RN RN ph
--- NOTE | 2018-07-30 13:56 | EDPHYS ---
Physician Documentation [facility] Name: Torie Das Age: 58 yrs Sex: Female : 1960 Arrival Date: 07/30/2018 Time: 12:49 Bed 14 Private MD: ED Physician Jono Ball HPI: 07/30 12:57 This 58 yrs old Female presents to ER via EMS with complaints of Abdominal kb Pain. 12:57 The patient presents with abdominal pain in the upper abdomen. Onset: The kb symptoms/episode began/occurred this morning. The symptoms do not radiate. Associated signs and symptoms: Pertinent positives: diarrhea, nausea, Pertinent negatives: fever, vomiting. The symptoms are described as waxing/waning. Modifying factors: The symptoms are alleviated by nothing, the symptoms are aggravated by nothing. Severity of pain: At its worst the pain was severe in the emergency department the pain has improved. The patient has experienced similar episodes in the past, a few times. The patient has not recently seen a physician. Historical: - Allergies: 12:53 Nubain; ph 12:53 Sudafed; ph - Home Meds: 12:53 Benztropine Mesylate Oral [Active]; Geodon 160 mg at night and 20 mg in the morning ph Oral [Active]; Hydroxyzine Oral [Active]; - PMHx: 12:53 Bipolar disorder; Diabetes - NIDDM; Pancreatitis; ph - PSHx: 12:53 Cholecystectomy; Appendectomy; Tonsillectomy; ph - Immunization history:: Adult Immunizations unknown. - Social history:: Smoking status: Patient/guardian denies using tobacco, Patient/guardian denies using alcohol. - Ebola Screening: : No symptoms or risks identified at this time. ROS: 12:56 Constitutional: Negative for fever, chills, and weight loss, Neck: Negative for injury, kb pain, and swelling, Cardiovascular: Negative for chest pain, palpitations, and edema, Respiratory: Negative for shortness of breath, cough, wheezing, and pleuritic chest pain, Back: Negative for injury and pain, MS/Extremity: Negative for injury and deformity, Skin: Negative for injury, rash, and discoloration, Neuro: Negative for headache, weakness, numbness, tingling, and seizure. 12:56 Abdomen/GI: Positive for abdominal pain, diarrhea, Negative for nausea and vomiting, constipation, abdominal cramps, abdominal distension, anorexia. Exam: 12:57 Constitutional: This is a well developed, well nourished patient who is awake, alert, kb and in no acute distress. Head/Face: Normocephalic, atraumatic. Chest/axilla: Normal chest wall appearance and motion. Nontender with no deformity. No lesions are appreciated. Cardiovascular: Regular rate and rhythm with a normal S1 and S2. No gallops, murmurs, or rubs. Normal PMI, no JVD. No pulse deficits. Respiratory: Lungs have equal breath sounds bilaterally, clear to auscultation and percussion. No rales, rhonchi or wheezes noted. No increased work of breathing, no retractions or nasal flaring. Skin: Warm, dry with normal turgor. Normal color with no rashes, no lesions, and no evidence of cellulitis. MS/ Extremity: Pulses equal, no cyanosis. Neurovascular intact. Full, normal range of motion. Neuro: Awake and alert, GCS 15, oriented to person, place, time, and situation. Cranial nerves II-XII grossly intact. Motor strength 5/5 in all extremities. Sensory grossly intact. Cerebellar exam normal. Normal gait. 12:57 Abdomen/GI: Inspection: abdomen appears normal, Bowel sounds: normal, in all quadrants, Palpation: soft, in all quadrants, mild abdominal tenderness, in the right upper quadrant and left upper quadrant. Vital Signs: 12:51 BP 108 / 76; Pulse 72; Resp 18; Temp 97.8; Pulse Ox 100% on R/A; Weight 72.57 kg; ph Height 5 ft. 5 in. (165.10 cm); Pain 5/10; 14:00 BP 111 / 76; Pulse 76; Resp 18; Temp 97.8; Pulse Ox 98% on R/A; ph 15:00 BP 107 / 74; Pulse 74; Resp 18; Temp 98.0; Pulse Ox 99% on R/A; ph 12:51 Body Mass Index 26.63 (72.57 kg, 165.10 cm) ph MDM: 12:52 Patient medically screened. kb 12:57 Data reviewed: vital signs, nurses notes. Data interpreted: Pulse oximetry: on room air kb is 100 %. Interpretation: normal. 13:55 Counseling: I had a detailed discussion with the patient and/or guardian regarding: the kb historical points, exam findings, and any diagnostic results supporting the discharge/admit diagnosis, lab results, the need for outpatient follow up, a family practitioner, a banquet food server, to return to the emergency department if symptoms worsen or persist or if there are any questions or concerns that arise at home. 07/30 12:52 Order name: Basic Metabolic Panel; Complete Time: 13:52 kb 07/30 12:52 Order name: CBC with Diff; Complete Time: 13:47 kb 07/30 12:52 Order name: Hepatic Function; Complete Time: 13:52 kb 07/30 12:52 Order name: Lipase; Complete Time: 13:52 kb 07/30 12:52 Order name: IV Saline Lock; Complete Time: 13:03 kb 07/30 12:52 Order name: Labs collected and sent; Complete Time: 13:03 kb Administered Medications: 13:55 Drug: NS 0.9% 1000 ml Route: IV; Rate: 1000 ml; Site: left antecubital; ph 14:40 Follow up: Response: No adverse reaction; IV Status: Completed infusion ph 13:55 Drug: Zofran 4 mg Route: IVP; Site: left antecubital; ph 14:41 Follow up: Response: No adverse reaction ph 13:55 Drug: morphine 4 mg Route: IVP; Site: left antecubital; ph 14:42 Follow up: Response: No adverse reaction; Pain is decreased ph Disposition: 15:13 Co-signature as Attending Physician, Jono Ball MD. rn Disposition: 07/30/18 13:56 Discharged to Home. Impression: Upper abdominal pain, unspecified. - Condition is Stable. - Discharge Instructions: Abdominal Pain, Adult, [id number]. - Prescriptions for Bentyl 20 mg Oral Tablet - take 1 tablet by ORAL route every 6 hours As needed; 20 tablet. Zofran 4 mg Oral Tablet - take 1 tablet by ORAL route every 6 hours As needed; 20 tablet. - Medication Reconciliation Form, Thank You Letter, Antibiotic Education, Prescription Opioid Use, Work release form form. - Follow up: Emergency Department; When: As needed; Reason: Worsening of condition. Follow up: Private Physician; When: 2 - 3 days; Reason: Recheck today's complaints, Continuance of care, Re-evaluation by your physician. Signatures: Dispatcher [employer] EDCindy Klein, LICENSING REGISTRATION EXAMINER-C LICENSING REGISTRATION EXAMINER-Ckb Jono Ball MD MD rn Kenzie Morocho RN RN ph Corrections: (The following items were deleted from the chart) 15:03 13:56 07/30/2018 13:56 Discharged to Home. Impression: Upper abdominal pain, ph unspecified. Condition is Stable. Forms are Medication Reconciliation Form, Thank You Letter, Antibiotic Education, Prescription Opioid Use. Follow up: Emergency Department; When: As needed; Reason: Worsening of condition. Follow up: Private Physician; When: 2 - 3 days; Reason: Recheck today's complaints, Continuance of care, Re-evaluation by your physician. kb
[2018-07-30] MEDS ORDERED: ONDANSETRON 4 MG/2 ML VIAL ONE (14:02)
[2018-07-30] MEDS ORDERED: MORPHINE 4 MG/ML SYR ONE (14:02)
[2018-07-30] MEDS ORDERED: NA CHLORIDE 0.9% 1,000 ML ONE (14:02)
[2018-07-30 15:24] VITALS: TEMP 97.8
[2018-07-30 15:25] VITALS: BP 111/76; O2SAT 98
== END 2018-07-30 15:03 | disposition home or self-care (01) ==
LOC: ER 12:46
DX: R10.10 Upper abdominal pain, unspecified (principal); R19.7 Diarrhea, unspecified; F31.9 Bipolar disorder, unspecified; E11.9 Type 2 diabetes mellitus without complications; Z88.5 Allergy status to narcotic agent; Z88.8 Allergy status to other drugs, medicaments and biological substances
CPT/HCPCS: 96361; 85025; 80048; 36415; 80076; 83690; 96375; 96374; 99284; J7030; J2405

== ENCOUNTER 2019-08-28 08:57 | Emergency (ER) | payer MEDICARE ==
--- OUTSIDE RECORDS SUMMARY | 2019-08-28 09:00 | XMS REPORT ---
:1960 Author Organization eClinicalWorks Care Team Providers Name Role Phone [facility] Provider Role Unavailable Allergies, Adverse Reactions, Alerts Substance Reaction Event Type Sudafed Info Not Available Drug Allergy Nubain Info Not Available Drug Allergy Problems Problem Type Condition Code Onset Dates Condition Statu s Problem Colonic polyp K63.5 Active Problem Diverticulosis of colon without K57.30 Active diverticulitis Problem Hypercholesteremia E78.00 Active Problem Postmenopausal bleeding N95.0 Acti ve Assessment Allergic dermatitis L23.9 Active Problem Mild intermittent asthma with J45.21 Active exacerbation Assessment Pruritic dermatitis L29.9 Active Problem Primary osteoarthritis of left hand M19.042 Active Problem Encounter for gynecological Z01.419 Active examination without abnormal finding Problem Breast lump N63.0 Active Problem Mild cognitive impairment with G31.84 Active memory loss Problem Encounter for screening mammogram Z12.31 Active for breast cancer Problem Chronic pancreatitis K86.1 Active Problem Depression F32.9 Active Problem Primary insomnia F51.01 Active Problem Internal hemorrhoids K64.8 Active Problem Osteoarthritis of knee M17.9 Activ e Problem Asthma J45.909 Active Problem Bipolar disorder F31.9 Active Problem Anxiety F41.9 Active Problem Diabetes type 2, controlled E11.9 Active Medications Medication Code Code Instructions Start End Status Dosage System Date Vistaril [facility] 21108417108 25 MG Orally Active 1 caps ule as every 8 hrs needed Geodon ND 08792868378 80 MG Orally Active 1 capsu le Twice a day with food Ventolin HFA ND 99477287017 90 MCG/ACT Active 2 pu ffs as Inhalation needed every 6 hrs Triamcinolone ND 71600395216 0.1 % May Active 1 appl ication Acetonide Externally 10, Twice a day 2019 Benztropine ND 20223870468 2 MG Orally Active 1 ta blet at Mesylate Once a day bedtime Results No Known Results Summary Purpose eClinicalWorks Submission
--- OUTSIDE RECORDS SUMMARY | 2019-08-28 09:00 | XMS REPORT ---
:1960 Author Organization eClinicalWorks Care Team Providers Name Role Phone [facility] Provider Role Unavailable Allergies, Adverse Reactions, Alerts Substance Reaction Event Type Sudafed Info Not Available Drug Allergy Nubain Info Not Available Drug Allergy Problems Problem Type Condition Code Onset Dates Condition Statu s Assessment Primary osteoarthritis of left hand M19.042 Active Assessment Chronic pancreatitis K86.1 Active Assessment Primary insomnia F51.01 Active Problem Bipolar disorder F31.9 Active Assessment Depression F32.9 Active Problem Diabetes type 2, controlled E11.9 Active Assessment Asthma J45.909 Active Problem Colonic polyp K63.5 Active Problem Diverticulosis of colon without K57.30 Active diverticulitis Problem Hypercholesteremia E78.00 Active Problem Postmenopausal bleeding N95.0 Acti ve Problem Mild intermittent asthma with J45.21 Active exacerbation Assessment Diabetes type 2, controlled E11.9 Active Assessment Bipolar disorder F31.9 Active Problem Primary osteoarthritis of left hand M19.042 Active Assessment Hypercholesteremia E78.00 Active Problem Encounter for gynecological [...] Activ e Problem Asthma J45.909 Active Problem Anxiety F41.9 Active Medications Medication Code Code Instructions Start End Status Dosage System Date Date Geodon [facility] 36868544382 80 MG Orally Active 1 capsu le Twice a day with food Vistaril ND 67101522798 25 MG Orally Active 1 caps ule every 8 hrs as needed Benztropine ND 25194542221 2 MG Orally Active 1 ta blet Mesylate Once a day at bedtime Trazodone HCl ND 08154572285 50 MG Orally Inactive 1 tablet Once a day at bedtime as needed Ventolin HFA NDC 29627684096 90 MCG/ACT Active 2 pu ffs as Inhalation needed every 6 hrs Results No Known Results Summary Purpose eClinicalWorks Submission
--- OUTSIDE RECORDS SUMMARY | 2019-08-28 09:00 | XMS REPORT ---
:1960 Author Organization [facility] t Address [address] [place] [address] Care Team Providers Name Role Phone Unavailable Unavailable Unavailable Problems Condition Condition Condition Status Onset Resolution Last Treating Co mments Source Name Details Category Date Date Treatment Clinician Date Hyperchole Hyperchole Problem Active [facility] ste[facility] Osteoarthr Osteoarthr Problem Active [facility] itis [facility] itis [facility] Internal Internal Problem [facility] Asthma Asthma Problem [facility] Depression Depression Problem [facility] Anxiety Anxiety Problem [facility] Diabetes Diabetes Problem [facility] type 2, type 2, [facility] controlled controlled [facility] Bipolar Bipolar Problem Active [facility] disorder disorder [facility] Chronic Chronic Problem Active [facility] pancreatit pancreatit [facility] Colonic Colonic Problem Active [facility] polyp polyp [facility] Primary Primary Problem Active [facility] insomnia insomnia [facility] Diverticul Diverticul Problem Active [facility] osis of osis of [facility] - colon colon [facility] without without l diverticul diverticul Ou tpati itis itis ent Clinics Encounter Encounter Problem Active [facility] for for [facility] gynecologi gynecologi Me moria otoniel otoniel l examinatio examinatio Ou tpati n without n without ent abnormal abnormal Clinic s finding finding Breast Breast Problem Active [facility] lump lump [facility] Encounter Encounter Problem Active [facility] for for [facility] screening screening Amado salvatore mammogram mammogram l for breast for breast Ou tpati cancer cancer ent Clinics Mild Mild Problem Active [facility] cognitive cognitive Luke s - impairment impairment Me moria with with l memory memory Outpati loss loss ent Clinics Mild Mild Problem Active [facility] intermitte intermitte Meg kes - nt asthma nt asthma Amado salvatore with with l exacerbati exacerbati Ou tpati on on ent Clinics Postmenopa Postmenopa Problem Active [facility] usal usal [facility] bleeding [facility] Primary Primary Problem Active [facility] osteoarthr osteoarthr Meg [facility] - itis of itis of [facility] left hand [facility] Allergic Allergic Diagnosis Active [facility] dermatitis dermatitis Meg [facility]es - [facility] Pruritic Pruritic Diagnosis Active [facility] dermatitis dermatitis Meg [facility] - [facility] Allergies, Adverse Reactions, Alerts Allergy Allergy Status Severity Reaction(s) Onset Inactive Treating Comm ents Source Name Type Date Date Clinician Nubain Adverse Active Info Not [facility] Reaction Available [facility] Sudafed Adverse Active Info Not [facility] Reaction Available [facility] Medications Ordered Filled Start Stop Current Ordering Indication Dosage Frequency Signature Comments Components Source Medication Medication Date Date Medication? Clinician (SIG) Name Name Triamcinolo Triamcinolo Yes Erwin [address] [facility] ne ne 3-10 Lowe applicatio [facility] - Acetonide Acetonide 00:00: n Mem oria 00 l [facility] Vistaril Vistaril Yes Erwin [address] [facility] as needed [facility] Geodon Geodon Yes Erwin [address] [facility] with food [facility] Ventolin Ventolin Yes Erwin [address] [facility] HFA HFA [facility] needed [facility] Benztropine Benztropine Yes Erwin [address] [facility] Mesylate Mesylate Lowe at bedtime [facility] Immunizations Ordered Filled Immunization Date Status Comments Sour e Immunization Name Name Afluria single dose Afluria single dose 2019-02-[address] [facility] Afluria Afluria 2018-04-[address] [facility]00 [facility] Procedures This patient has no known procedures. Encounters Start End Encounter Admission Attending Care Care Encounter Source Date/Time Date/Time Type Type Clinicians Facility Department ID 2019-06-07 2019-06-07 [facility] [id number] [facility] 13:00:00 13:00:00 [facility] [employer] [facility] Medicine Outpati ent Clinics 2019-06-02 2019-06-02 [facility] [id number] [facility] 10:45:00 10:45:00 [facility] [employer] [facility] Medicine l Medicine Outpati ent Clinics 2019-05-05 2019-05-05 [facility] [id number] [facility] 08:32:00 08:32:00 [facility] [employer] [facility] l Medicine Outpati ent Clinics 2019-05-04 2019-05-04 [facility] [id number] 09:45:00 09:45:00 [facility] [employer] [facility] Medicine Outpati ent Clinics 2019-02-28 2019-02-28 [facility] [id number] 11:56:00 11:56:00 [facility] [employer] [facility] Medicine Outpati ent Clinics 2019-02-16 2019-02-16 [facility] [id number] 14:30:00 14:30:00 [facility] [employer] [facility] Medicine Outpati ent Clinics 2019-02-01 2019-02-01 [facility] [id number] 11:00:00 11:00:00 [facility] [employer] [facility] Medicine Outpati ent Clinics 2019-01-28 2019-01-28 [facility] [id number] 09:15:00 09:15:00 [employer] [facility] Medicine Outpati ent Clinics 2019-01-24 2019-01-24 [facility] [id number] 16:30:00 16:30:00 [employer] [facility] Medicine Outpati ent Clinics 2019-01-12 2019-01-12 [facility] [id number] [address] 13:51:00 13:51:00 [place] [employer] [place] [facility] - [facility] Medicine l Medicine Outpati ent Clinics 2019-01-03 2019-01-03 [facility] [id number] 11:46:00 11:46:00 [place] [employer] [employer] [place] s - Drive [facility] Medicine l Medicine Outpati ent Clinics 2018-12-14 2018-12-14 [facility] [id number] [address] 13:30:00 13:30:00 [place] [employer] [employer] s - Drive [facility] Medicine l Medicine Outpati ent Clinics 2018-09-14 2018-09-14 [facility] [id number] 08:00:00 08:00:00 [place] [employer] [place] - Drive [facility] l Medicine Outpati ent Clinics 2018-07-13 2018-07-13 [facility] [id number] 11:00:00 11:00:00 [facility] l Outpati ent Clinics 2018-07-01 2018-07-01 [facility] [id number] [facility] 14:30:00 14:30:00 [place] [employer] - [facility] Medicine Outpati ent Clinics 2018-06-25 2018-06-25 [facility] [id number] [address] 10:31:00 10:31:00 [place] [employer] - Drive [facility] Medicine Medicine Outpati ent Clinics 2018-06-17 2018-06-17 [facility] [id number] 14:30:00 14:30:00 [place] [employer] [place] s - Drive [facility] Medicine l Medicine Outpati ent Clinics 2018-06-16 2018-06-16 [facility] [id number] 09:45:00 09:45:00 [place] [employer] s - Drive [facility] Medicine l Medicine Outpati ent Clinics 2018-04-21 2018-04-21 [facility] [id number] [address] 16:00:00 16:00:00 [place] [employer] [place] - Drive [facility] Medicine Outpati ent Clinics 2018-04-07 2018-04-07 [facility] [id number] 09:45:00 09:45:00 [place] [employer] [place] - Drive [facility] Medicine Outpati ent Clinics 2017-11-13 2017-11-13 [facility] [id number] [address] 10:45:00 10:45:00 [place] [email or web address] s - Drive [facility] Medicine Outpati ent Clinics 2017-11-11 2017-11-11 [facility] [id number] 09:21:00 09:21:00 [place] [email or web address] s - Drive [facility] Medicine Outpati ent Clinics 2017-11-02 2017-11-02 [facility] [id number] 14:30:00 14:30:00 [place] [email or web address] [place] - Drive [facility] Medicine Outpati ent Clinics 2017-10-22 2017-10-22 [facility] [id number] [address] 14:45:00 14:45:00 [facility] l Outpati ent Clinics 2017-10-07 2017-10-07 [facility] [id number] [facility] [address] 10:08:00 10:08:00 t [employer] - Drive [facility] Medicine Outpati ent Clinics 2017-07-06 2017-07-06 [facility] [id number] [facility] 14:45:00 14:45:00 [place] [email or web address] s - Drive [facility] Medicine Outpati ent Clinics Results This patient has no known results.
[2019-08-28] MEDS ORDERED: LORazepam 2 MG/ML VIAL ONE (09:50)
[2019-08-28 10:00] LABS: Urine Blood NEGATIVE (NEG); Urine Glucose NEGATIVE (NEG); Urine Protein NEGATIVE (NEG); Urine Specific Gravity 1.015 (1.005-1.030)
[2019-08-28 10:10] LABS: Absolute Lymphocytes (CBC) 1.8 K/uL (0.7-4.9); Basophils % 0.4 % (0-1.3); Hematocrit 41.1 % (36.0-45.0); RBC Red Blood Cell Count 4.33 M/uL (3.86-4.86)
[2019-08-28 10:10] LABS: Barbiturates NEGATIVE (NEGATIVE); Benzodiazepines NEGATIVE (NEGATIVE); Cocaine NEGATIVE (NEGATIVE); METHAMPHETAM NEGATIVE (NEGATIVE); Methadone NEGATIVE (NEGATIVE); Opiates NEGATIVE (NEGATIVE); Phencyclidine NEGATIVE (NEGATIVE); THC Cannibis NEGATIVE (NEGATIVE)
[2019-08-28] MEDS ORDERED: NA CHLORIDE 0.9% 500 ML ONE (10:13)
[2019-08-28 10:39] LABS: Protime INR 0.96
[2019-08-28 10:43] LABS: ALT/SGPT 31 U/L (12-78); AST/SGOT 25 U/L (15-37); Albumin 3.6 g/dL (3.4-5.0); Alkaline Phosphatase 80 U/L (45-117); BUN Blood Urea Nitrogen 17 mg/dL (7-18); Bicarbonate 31 mmol/L (21-32); Bilirubin Direct 0.1 mg/dL (0-0.2); Bilirubin Total 0.4 mg/dL (0.2-1.0); Glucose Level 111 mg/dL (74-106); Potassium 3.8 mmol/L (3.5-5.1); Protein, Total 7.7 g/dL (6.4-8.2); Sodium Level 143 mmol/L (136-145)
[2019-08-28 11:03] VITALS: TEMP 98.1; O2SAT 99
[2019-08-28 11:04] VITALS: BP 104/78
--- NOTE | 2019-08-28 14:04 | EKG ---
Test Date: 2019-08-28 Test Time: 10:06:32 Certified Wellness Program Coordinator: ANGY MEASUREMENT RESULTS: Intervals: Rate: 70 [place]: 152 QRSD: 88 QT: 424 QTc: 457 [place]: P: 64 [place]: 152 QRS: 10 T: 48 INTERPRETIVE STATEMENTS: Normal sinus rhythm Low voltage QRS Borderline ECG Compared to ECG 01/24/2014 18:11:08 Low QRS voltage now present Electronically Signed On 08-28-19 14:03:48 CDT by Harshal Musa
--- NOTE | 2019-08-29 18:50 | EDPHYS ---
Physician Documentation [facility] Name: Torie Das Age: 59 yrs Sex: Female : 1960 Arrival Date: 08/28/2019 Time: 08:59 Bed 19 Private MD: Mynor [facility] ED Physician Pedro Luis Sifuentes HPI: 08/27 09:38 This 59 yrs old Female presents to ER via Ambulatory with complaints of Panic pm1 Attacks. 09:38 The patient presents to the emergency department with anxiety, over sister's health. pm1 Onset: The symptoms/episode began/occurred 2 day(s) ago. Past psychiatric history: Prior diagnosis: bipolar disorder, schizophrenia. Associated signs and symptoms: Pertinent positives; anxiety, Pertinent negatives: chest pain, hallucinations, paranoia, shortness of breath, suicide ideation. Severity of symptoms: in the emergency department the symptoms are worse. Patient with history of bipolar disorder, schizophrenia and anxiety. Patient reports normally well controlled with medications that she takes but once she heard some news about her sister's health 2 days ago, she has been having panic attacks. Historical: - Allergies: 09:37 Nubain; ca1 09:37 Sudafed; ca1 - Home Meds: 09:37 Benztropine Mesylate Oral [Active]; Geodon 160 mg at night and 20 mg in the morning ca1 Oral [Active]; Hydroxyzine Oral [Active]; Trazodone Oral [Active]; - PMHx: 09:37 Bipolar disorder; Diabetes - NIDDM; Pancreatitis; ca1 - PSHx: 09:37 Cholecystectomy; Appendectomy; Tonsillectomy; ca1 - Immunization history:: Adult Immunizations up to date. - Social history:: Smoking status: Patient denies any tobacco usage or history of. ROS: 09:38 Constitutional: Negative for fever, chills, and weight loss, Neck: Negative for injury, pm1 pain, and swelling, Cardiovascular: Negative for chest pain, palpitations, and edema, Respiratory: Negative for shortness of breath, cough, wheezing, and pleuritic chest pain, Abdomen/GI: Negative for abdominal pain, nausea, vomiting, diarrhea, and constipation, Back: Negative for injury and pain, MS/Extremity: Negative for injury and deformity, Skin: Negative for injury, rash, and discoloration, Neuro: Negative for headache, weakness, numbness, tingling, and seizure. 09:38 Psych: Positive for anxiety, Negative for depression, drug dependence, alcohol dependence, auditory hallucinations, visual hallucinations, homicidal ideation, suicide gesture, suicidal ideation. Exam: 09:38 Constitutional: This is a well developed, well nourished patient who is awake, alert, pm1 and in no acute distress. Head/Face: Normocephalic, atraumatic. Chest/axilla: Normal chest wall appearance and motion. Nontender with no deformity. No lesions are appreciated. 09:38 Back: No spinal tenderness. No costovertebral tenderness. Full range of motion. Skin: Warm, dry with normal turgor. Normal color with no rashes, no lesions, and no evidence of cellulitis. MS/ Extremity: Pulses equal, no cyanosis. Neurovascular intact. Full, normal range of motion. 09:38 Cardiovascular: Exam negative for acute changes, Rate: normal, Rhythm: regular, Pulses: no pulse deficits are appreciated, Heart sounds: normal, normal S1and S2. 09:38 Respiratory: Exam negative for acute changes, respiratory distress, shortness of breath. 09:38 Neuro: Orientation: is normal, Mentation: is normal, Motor: is normal, Sensation: is normal, no obvious gross deficits, Abnormal movements: resting tremor, is located in the right foot and left foot. Vital Signs: 09:33 BP 105 / 74; Pulse 80; Resp 19 S; Temp 98.1(O); Pulse Ox 99% on R/A; Weight 72.57 kg ca1 (R); Height 5 ft. 5 in. (165.10 cm) (R); Pain 0/10; 10:54 BP 104 / 78; Pulse 76; Resp 16 S; Pulse Ox 99% on R/A; ca1 09:33 Body Mass Index 26.63 (72.57 kg, 165.10 cm) ca1 MDM: 09:28 Patient medically screened. pm1 10:41 Data reviewed: vital signs. Data interpreted: Pulse oximetry: on room air is 99 %. pm1 Interpretation: normal. 10:47 Counseling: I had a detailed discussion with the patient and/or guardian regarding: the pm1 historical points, exam findings, and any diagnostic results supporting the discharge/admit diagnosis, lab results, the need for outpatient follow up, a family practitioner, a psychiatrist, to return to the emergency department if symptoms worsen or persist or if there are any questions or concerns that arise at home. 10:55 ED course: OPERATIONS MANAGER STATION aware reviewed. 08/27 09:36 Order name: Acetaminophen; Complete Time: 10:47 pm08/27 09:36 Order name: Basic Metabolic Panel; Complete Time: 10:47 pm08/27 09:36 Order name: CBC with Diff; Complete Time: 10:32 08/27 09:36 Order name: ETOH Level; Complete Time: 10:32 08/27 09:36 Order name: Hepatic Function; Complete Time: 10:47 08/27 09:36 Order name: PT-INR; Complete Time: 10:41 08/27 09:36 Order name: Ptt, Activated; Complete Time: 10:41 08/27 09:36 Order name: Salicylate; Complete Time: 10:41 08/27 09:36 Order name: Urine Drug Screen; Complete Time: 10:32 08/27 09:36 Order name: EKG; Complete Time: 09:37 pm08/27 09:59 Order name: Urine Dipstick--Ancillary (enter results); Complete Time: 10:32 eb 08/27 09:59 Order name: Urine --Ancillary (enter results); Complete Time: 10:32 eb 08/27 09:36 Order name: EKG - Nurse/Tech; Complete Time: 10: pm08/27 09:36 Order name: IV Saline Lock; Complete Time: 10:08/27 09:36 Order name: Labs collected and sent; Complete Time: 10:08/27 09:36 Order name: Urine Dipstick-Ancillary (obtain specimen); Complete Time: 10: pm EC:19 Rate is 70 beats/min. Rhythm is regular, Normal Sinus Rhythm with No ectopy. No Q pm1 waves. T waves are Normal. No ST changes noted. Clinical impression: Normal ECG. Administered Medications: 10:04 Drug: Ativan 0.5 mg Route: IVP; Site: right antecubital; ca1 10:54 Follow up: Response: No adverse reaction; Anxiety decreased ca1 10:04 Drug: NS 0.9% 500 ml Volume: 500 ml; Route: IV; Rate: 1 bolus; Site: right antecubital; ca1 10:53 Follow up: Response: No adverse reaction; IV Status: Completed infusion ca1 Disposition: 14:36 Co-signature as Attending Physician, Pedro Luis Sifuentes MD I agree with the assessment and kdr plan of care. Disposition: 08/28/19 10:48 Discharged to Home. Impression: Anxiety disorder, unspecified. - Condition is Stable. - Discharge Instructions: Panic Attacks, Generalized Anxiety Disorder. - Prescriptions for Ativan 0.5 mg Oral Tablet - take 1 tablet by ORAL route every 8 hours As needed; 10 tablet. - Medication Reconciliation Form, Thank You Letter, Antibiotic Education, Prescription Opioid Use form. - Follow up: Emergency Department; When: As needed; Reason: Worsening of condition. Follow up: Private Physician; When: 2 - 3 days; Reason: Recheck today's complaints, Continuance of care, Re-evaluation by your physician. - Problem is new. - Symptoms have improved. Signatures: Dispatcher [employer] EDMA Pedro Luis Sifuentes MD MD [facility] Aysha Alcaraz, RN RN rb1 Jonas Perez, MAJO [employer] SALES NETWORK ENGINEER pm1 Kathe Prajapati RN RN ca1 Corrections: (The following items were deleted from the chart) 10:58 10:48 08/28/2019 10:48 Discharged to Home. Impression: Anxiety disorder, unspecified. rb1 Condition is Stable. Discharge Instructions: Panic Attacks, Generalized Anxiety Disorder. Prescriptions for Ativan 0.5 mg Oral Tablet - take 1 tablet by ORAL route every 8 hours As needed; 10 tablet. and Forms are Medication Reconciliation Form, Thank You Letter, Antibiotic Education, Prescription Opioid Use. Follow up: Emergency Department; When: As needed; Reason: Worsening of condition. Follow up: Private Physician; When: 2 - 3 days; Reason: Recheck today's complaints, Continuance of care, Re-evaluation by your physician. Problem is new. Symptoms have improved. pm1
--- NOTE | 2019-08-29 18:50 | ER ---
Nurse's Notes [facility] Name: Torie Das Age: 59 yrs Sex: Female : 1960 Arrival Date: 08/28/2019 Time: 08:59 Bed 19 Private MD: Erwin Lowe Diagnosis: Anxiety disorder, unspecified Presentation: 08/27 09:33 Chief complaint: Patient states: "I had bad news about my sister 2 days ago and since ca1 they I have been freaking out. I can't focus and my mind seems to be running a million miles an hour and I am having panic attacks". Reports hx of anxiety and on medications for it. Denies chest pain and SOB. Pt shaking but reports it to be normal. Coronavirus screen: Proceed with normal triage. Patient denies a cough. Patient denies shortness of breath or difficulty breathing. Patient denies measured and/or subjective temperature greater than 100.4F prior to today's visit. Patient denies travel on a cruise ship or to a country the [facility] currently lists as an affected area. Patient denies contact with known and/or suspected case of COVID-19. Ebola Screen: Patient negative for fever greater than or equal to 101.5 degrees Fahrenheit, and additional compatible Ebola Virus Disease symptoms Patient denies exposure to infectious person. Patient denies travel to an Ebola-affected area in the 21 days before illness onset. No symptoms or risks identified at this time. Initial Sepsis Screen: Does the patient meet any 2 criteria? No. Patient's initial sepsis screen is negative. Does the patient have a suspected source of infection? No. Patient's initial sepsis screen is negative. Risk Assessment: Do you want to hurt yourself or someone else? Patient reports no desire to harm self or others. Onset of symptoms was August 28, 2019. 09:33 Method Of Arrival: Ambulatory ca1 09:33 Acuity: PRISCILA 3 ca1 Triage Assessment: 09:37 General: Appears in no apparent distress. uncomfortable, Behavior is cooperative, ca1 anxious. Pain: Denies pain. EENT: No signs and/or symptoms were reported regarding the EENT system. Neuro: Level of Consciousness is awake, alert, obeys commands, Oriented to person, place, time, situation, Appropriate for age. Cardiovascular: Heart tones S1 S2 absent Capillary refill < 3 seconds Patient's skin is warm and dry. Respiratory: Airway is patent Respiratory effort is even, unlabored, Respiratory pattern is regular, symmetrical, Breath sounds are clear bilaterally. GI: Abdomen is flat, non-distended, Bowel sounds present X 4 quads. Abd is soft and non tender X 4 quads. : No signs and/or symptoms were reported regarding the genitourinary system. Derm: Skin is intact, is healthy with good turgor, Skin is pink, warm \\T\\ dry. Musculoskeletal: Circulation, motion, and sensation intact. Capillary refill < 3 seconds, shaking and tremor of extremities pt states, "this is normal and not more than usual. It's the side effects of my medications". Historical: - Allergies: 09:37 Nubain; ca1 09:37 Sudafed; ca1 - Home Meds: 09:37 Benztropine Mesylate Oral [Active]; Geodon 160 mg at night and 20 mg in the morning ca1 Oral [Active]; Hydroxyzine Oral [Active]; Trazodone Oral [Active]; - PMHx: 09:37 Bipolar disorder; Diabetes - NIDDM; Pancreatitis; ca1 - PSHx: 09:37 Cholecystectomy; Appendectomy; Tonsillectomy; ca1 - Immunization history:: Adult Immunizations up to date. - Social history:: Smoking status: Patient denies any tobacco usage or history of. Screenin:39 Abuse screen: Denies threats or abuse. Denies injuries from another. Nutritional ca1 screening: No deficits noted. Tuberculosis screening: No symptoms or risk factors identified. Fall Risk IV access (20 points). Assessment: 09:39 Reassessment: SEE TRIAGE. ca1 10:20 Reassessment: Patient appears in no apparent distress at this time. Patient is alert, ca1 oriented x 3, equal unlabored respirations, skin warm/dry/pink. Patient states feeling better. General: Appears in no apparent distress. comfortable, Behavior is calm, cooperative, appropriate for age. Musculoskeletal: shaking of extremities not noted at this time. 10:54 Reassessment: Patient appears in no apparent distress at this time. Patient is alert, ca1 oriented x 3, equal unlabored respirations, skin warm/dry/pink. Patient states feeling better. Patient states symptoms have improved. Vital Signs: 09:33 BP 105 / 74; Pulse 80; Resp 19 S; Temp 98.1(O); Pulse Ox 99% on R/A; Weight 72.57 kg ca1 (R); Height 5 ft. 5 in. (165.10 cm) (R); Pain 0/10; 10:54 BP 104 / 78; Pulse 76; Resp 16 S; Pulse Ox 99% on R/A; ca1 09:33 Body Mass Index 26.63 (72.57 kg, 165.10 cm) ca1 ED Course: 08:59 Patient arrived in ED. as 08:59 Erwin Lowe DO is Private Physician. as 09:26 Kathe Prajapati, MARIJA is Primary Nurse. ca1 09:27 [facility] pm1 09:27 Pedro Luis Sifuentes MD is Attending Physician. pm1 09:36 Triage completed. ca1 09:37 Arm band placed on right wrist. ca1 09:39 Patient has correct armband on for positive identification. Placed in gown. Bed in low ca1 position. Call light in reach. Side rails up X 1. classroom monitor on. Pulse ox on. NIBP on. Door closed. Noise minimized. Lights dimmed. Warm blanket given. 10:00 Urine --Ancillary (enter results) Sent. [facility] 10:00 Urine Dipstick--Ancillary (enter results) Sent. [facility] 10:00 Acetaminophen Sent. [facility] 10:00 Basic Metabolic Panel Sent. [facility] 10:00 CBC with Diff Sent. [facility] 10:00 ETOH Level Sent. [facility] 10:00 Hepatic Function Sent. [facility] 10:00 PT-INR Sent. [facility] 10:00 Ptt, Activated Sent. [facility] 10:00 Salicylate Sent. [facility] 10:01 Urine Drug Screen Sent. [facility] 10:01 Initial lab(s) drawn, by ms, sent to lab. EKG done, by ED staff, reviewed by Jonas Perez NP. Inserted saline lock: 20 gauge antecubital area, using aseptic technique. Blood collected. 10:55 No provider procedures requiring assistance completed. Patient did not have IV access ca1 during this emergency room visit. 10:56 IV discontinued, intact, bleeding controlled, No redness/swelling at site. Pressure rb1 dressing applied. Administered Medications: 10:04 Drug: Ativan 0.5 mg Route: IVP; Site: right antecubital; ca1 10:54 Follow up: Response: No adverse reaction; Anxiety decreased ca1 10:04 Drug: NS 0.9% 500 ml Volume: 500 ml; Route: IV; Rate: 1 bolus; Site: right antecubital; ca1 10:53 Follow up: Response: No adverse reaction; IV Status: Completed infusion ca1 Outcome: 10:48 Discharge ordered by . pm1 10:56 Discharged to home ambulatory. rb1 10:56 Condition: stable 10:56 Discharge instructions given to patient, Instructed on discharge instructions, follow up and referral plans. medication usage, Demonstrated understanding of instructions, follow-up care, medications, Prescriptions given X 1. 10:58 Patient left the ED. rb1 Signatures: Tracy Ho Rebecca, RN RN rb1 Jonas Perez NP SURGICAL SUPERVISOR pm1 Zulema Ho [facility] Kathe Prajapati RN RN ca1 Corrections: (The following items were deleted from the chart) 10:21 10:20 Reassessment: Patient appears in no apparent distress at this time. Patient is ca1 alert, oriented x 3, equal unlabored respirations, skin warm/dry/pink. ca1
== END 2019-08-28 10:58 | disposition home or self-care (01) ==
LOC: ER 08:57
DX: F41.9 Anxiety disorder, unspecified (principal); F31.9 Bipolar disorder, unspecified; E11.9 Type 2 diabetes mellitus without complications; Z88.8 Allergy status to other drugs, medicaments and biological substances
CPT/HCPCS: 96361; 93005; 85025; 80048; 36415; 80320; 80329 ×2; 81025; 85610; 80076; 80307 ×8; 85730; 81003; 96374; 99284; J7040

== ENCOUNTER 2021-06-08 14:29 | Emergency (ER) | payer BC ==
--- OUTSIDE RECORDS SUMMARY | 2021-06-08 14:33 | XMS REPORT | Continuity of Care Document ---
:1960 Author Organization [facility] t Address [address] [place] [address] Care Team Providers Name Role Phone Iglesia Lowe Attending Clinician Unavailable Problems This patient has no known problems. Allergies, Adverse Reactions, Alerts Allergy Allergy Status Severity Reaction(s) Onset Inactive Treating Comm ents Source Name Type Date Date Clinician Josiah Adverse Active Info Not [facility] Sudafed Adverse Active Info Not [facility] Reaction Available [facility] Medications Ordered Filled Start Stop Current Ordering Indication Dosage Frequency Signature Comments Components Source Medication Medication Date Date Medication? Clinician (SIG) Name Name Lorazepam Lorazepam Yes Erwin [address] [facility] 6-02 [facility] at bedtime [facility] Triamcinolo Triamcinolo Yes Erwin [address] [facility] ne ne 3-10 Lowe applicatio [facility] Acetonide Acetonide 00:00: n [facility] Vistaril Vistaril Yes Erwin [address] [facility] Lowe as needed [facility] Geodon Geodon Yes Erwin [address] [facility] Lowe with food [facility] Ventolin Ventolin Yes Erwin [address] [facility] HFA HFA Lowe needed [facility] Benztropine Benztropine Yes Erwin [address] [facility] Mesylate Mesylate [facility] at bed[facility] Trazodone Trazodone Yes Erwin [address] [facility] HCl HCl [facility] Immunizations Ordered Filled Immunization Date Status Comments [facility] Immunization Name Name Regi single dose Regi single dose 2019-02-[address] [facility] Regi Deluna 2018-04-[address] [facility]00 [facility] Procedures This patient has no known procedures. Encounters Start End Encounter Admission Attending Care Care Encounter Source Date/Time Date/Time Type Type Clinicians Facility Department ID 2021-04-24 Outpatient Lowe, [facility] Erwin [id number] [facility] 2021-04-24 Outpatient Lowe, [facility] 13[facility]59:53 Erwin [id number] [facility] 2021-04-24 Outpatient Lowe, [facility] 13[facility]:05 Erwin [id number] [facility] 2021-04-24 Outpatient Lowe, [facility] 13[facility]:01 Erwin [id number] [facility] 2021-04-24 Outpatient Lowe, [facility] 13[facility]27:42 Erwin [id number] [facility] 2021-04-24 Outpatient Lowe, [facility] 13[facility]26:04 Erwin [id number] [facility] 2021-04-24 Outpatient Lowe, [facility] 12[facility]45:41 Erwin [id number] [facility] 2021-04-24 Outpatient Lowe, [facility] 12:26:35 Erwin [id number] [facility] 2021-04-24 Outpatient Lowe, [facility] 11[facility]55:52 Erwin [id number] [facility] 2021-04-24 Outpatient Lowe, [facility] 11[facility]34:56 Erwin [id number] [facility] 2021-04-24 Outpatient Lowe, [facility] 11:[facility] Erwin [id number] [facility] 2021-04-26 2021-04-26 ambulatory [facility] [id number] [facility] 2021-04-24 2021-04-24 ambulatory [facility] [id number] [facility] 2021-04-24 2021-04-24 ambulatory [facility] [id number] [facility] 2021-04-24 2021-04-24 ambulatory [facility] [id number] [facility] 2021-04-08 2021-04-08 ambulatory [facility] [id number] [facility] 2021-04-05 2021-04-05 ambulatory [facility] [id number] [facility] 2021-01-09 2021-01-09 Outpatient [facility] [id number] [facility] 2020-11-02 2020-11-02 Outpatient [facility] [id number] [facility] 2020-10-31 2020-10-31 Outpatient [facility] [id number] [facility] 2020-10-19 2020-10-19 Outpatient [facility] [id number] [facility] 2020-10-17 2020-10-17 Outpatient [facility] [id number] [facility] 2020-10-09 2020-10-09 Outpatient [facility] [id number] [facility] 2020-10-09 2020-10-09 Outpatient [facility] [id number] [facility] 2020-10-04 2020-10-04 Outpatient [facility] [id number] [facility] 2020-09-04 2020-09-04 Outpatient [facility] [id number] [facility] 2020-09-03 2020-09-03 Outpatient [facility] [id number] [facility] 2020-08-13 2020-08-13 Outpatient [facility] [id number] [facility] 2020-08-09 2020-08-09 Outpatient [facility] [id number] [facility] 2020-07-23 2020-07-23 Outpatient [facility] [id number] [facility] 2020-06-25 2020-06-25 Outpatient [facility] [id number] [facility] 2020-04-30 2020-04-30 Outpatient [facility] [id number] [facility] 2020-04-16 2020-04-16 Outpatient [facility] [id number] [facility] 2020-04-04 2020-04-04 Outpatient [facility] [id number] [facility] 2020-04-04 2020-04-04 Outpatient [facility] [id number] [facility] 2020-03-28 2020-03-28 Outpatient [facility] [id number] [facility] 2020-01-31 2020-01-31 Outpatient [facility] [id number] [facility] 2020-01-25 2020-01-25 Outpatient [facility] [id number] [facility] 2020-01-10 2020-01-10 Outpatient [facility] [id number] [facility] 2019-12-09 2019-12-09 [facility] [id number] [facility] 14[facility]53:00 14:53:00 t [employer] s - [facility] l Medicine Outpati ent Clinics 2019-11-17 2019-11-17 [facility] [id number] [facility] 09:45:00 09:45:00 t [employer] s - Drive [facility] l Medicine Outpat[facility] ent Clinics 2019-11-09 2019-11-09 [facility] [id number] [facility] 08:55:00 08:55:[address] [facility] [address] [place] - Road [facility] Medicine l Medicine Outpati ent Clinics 2019-10-25 2019-10-25 [facility] [id number] [facility] 14:19:00 14:19:00 t [employer] [facility] Medicine l Medicine Outpati ent Clinics 2019-10-21 2019-10-21 [facility] [id number] [facility] 14:30:00 14:30:00 t [employer] [facility] Medicine l Medicine Outpati ent Clinics 2019-09-28 2019-09-28 [facility] [id number] [facility] 10:30:00 10:30:00 t [employer] [facility] Medicine l Medicine Outpati ent Clinics 2019-09-13 2019-09-13 [facility] [id number] [facility] 16:38:00 16:38:00 t Beason Wiggio [facility] Medicine Outpati ent Clinics 2019-08-30 2019-08-30 [facility] [id number] [facility] 11:00:00 11:00:00 t Beason Wiggio [facility] Medicine Outpat[facility] ent Clinics 2019-06-07 2019-06-07 [facility] [id number] [facility] 13:00:00 13:00:00 t [employer] [facility] Medicine l Medicine Outpati ent Clinics 2019-06-02 2019-06-02 [facility] [id number] [facility] 10:45:00 10:45:00 t [employer] [facility] Medicine Outpati ent Clinics 2019-05-05 2019-05-05 [facility] [id number] [facility] 08:32:00 08:32:00 t [employer] [facility] Medicine Medicine Outpati ent Clinics 2019-05-04 2019-05-04 [facility] [id number] [facility] 09:45:00 09:45:00 t Beason Wiggio [facility] Medicine Outpati ent Clinics 2019-02-28 2019-02-28 [facility] [id number] [facility] 11:56:00 11:56:00 t [employer] [facility] Medicine Outpati ent Clinics 2019-02-16 2019-02-16 [facility] [id number] [facility] 14:30:00 14:30:[address] [place] s - Drive [facility] Medicine l Medicine Outpati ent Clinics 2019-02-01 2019-02-01 [facility] [id number] 11:00:00 11:00:[address] [place] s - Drive [facility] Medicine l Medicine Outpati ent Clinics 2019-01-28 2019-01-28 [facility] [id number] [facility] 09:15:00 09:15:[address] [place] s - Drive [facility] Medicine l Medicine Outpati ent Clinics 2019-01-24 2019-01-24 [facility] [id number] [facility] 16:30:00 16:30:00 t [employer] [place] s - Drive [facility] Medicine l Medicine Outpati ent Clinics 2019-01-12 2019-01-12 [facility] [id number] [facility] 13:51:00 13:51:00 t [employer] [place] s - Drive [facility] Medicine l Medicine Outpati ent Clinics 2019-01-03 2019-01-03 [facility] [id number] [facility] 11:46:00 11:46:00 t [employer] [place] s - Drive [facility] Medicine l Medicine Outpati ent Clinics 2018-12-14 2018-12-14 [facility] [id number] [facility] 13:30:00 13:30:00 t [employer] [place] s - Drive [facility] Medicine l Medicine Outpati ent Clinics 2018-09-14 2018-09-14 [facility] [id number] [facility] 08:00:00 08:00:00 t [employer] [place] s - Drive [facility] Medicine l Medicine Outpati ent Clinics 2018-07-13 2018-07-13 [facility] [id number] [facility] 11:00:00 11:00:00 t [facility] Clinic l Outpati ent Clinics 2018-07-01 2018-07-01 [facility] [id number] [facility] 14:30:00 14:30:[address] [place] s - Drive [facility] Medicine l Medicine Outpati ent Clinics 2018-06-25 2018-06-25 [facility] [id number] [facility] 10:31:00 10:31:[address] [place] s - Drive [facility] Medicine Medicine Outpati ent Clinics 2018-06-17 2018-06-17 [facility] [id number] [facility] 14:30:00 14:30:[address] [place] s - Drive [facility] Medicine l Medicine Outpati ent Clinics 2018-06-16 2018-06-16 [facility] [id number] [facility] 09:45:00 09:45:[address] [place] s - Drive [facility] Medicine Outpati ent Clinics 2018-04-21 2018-04-21 [facility] [id number] [facility] 16:00:00 16:00:[address] [place] s - Drive [facility] Medicine Outpati ent Clinics 2018-04-07 2018-04-07 [facility] [id number] [facility] 09:45:00 09:45:[address] [place] s - Drive [facility] Medicine Medicine Outpati ent Clinics 2017-11-13 2017-11-13 [facility] [id number] [facility] 10:45:00 10:45:[address] [place] s - Drive [facility] Medicine Outpati ent Clinics 2017-11-11 2017-11-11 [facility] [id number] [facility] 09:21:00 09:21:[address] [place] s - Drive [facility] Medicine l Medicine Outpati ent Clinics 2017-11-02 2017-11-02 [facility] [id number] [facility] 14:30:00 14:30:[address] [place] s - Drive [facility] Medicine l Medicine Outpati ent Clinics 2017-10-22 2017-10-22 [facility] [id number] [facility] 14:45:00 14:45:00 t [facility] [place] [facility] l Outpati ent Clinics 2017-10-07 2017-10-07 [facility] [id number] [facility] 10:08:00 10:08:[address] [place] s - Drive [facility] ent [facility] 2017-07-06 2017-07-06 Outpatient González Silva [id number] [facility] 14[facility] Results This patient has no known results.
[2021-06-08 15:42] LABS: Urine Blood Negative (Negative); Urine Glucose Negative (Negative); Urine Protein Negative (Negative); Urine Specific Gravity 1.015 (1.005-1.030)
--- NOTE | 2021-06-08 15:51 | EDPHYS ---
Physician Documentation [facility] Name: Torie Das Age: 61 yrs Sex: Female : 1960 Arrival Date: 06/08/2021 Time: 14:30 Bed 14 Private MD: Erwin Loew ED Physician Cholo Wallace HPI: 06/08 15:04 This 61 yrs old Female presents to ER via Ambulatory with complaints of uterine pm1 prolapse, Urinary Retention. 15:04 The patient presents with urinary symptoms, urinary retention. Onset: The pm1 symptoms/episode began/occurred today. Modifying factors: the symptoms are aggravated by possibly from uterine prolapse. Associated signs and symptoms: Pertinent negatives: Abdominal pain, flank pain, fever. Severity of symptoms: in the emergency department the symptoms are unchanged. The patient has not experienced similar symptoms in the past. Patient with uterine prolapse managed by PROJECT ESTIMATOR whose current treatment plan is kegel exercises. Historical: - Allergies: 15:07 Nubain; ww 15:07 Sudafed; ww - PMHx: 15:07 Bipolar disorder; Diabetes - NIDDM; Pancreatitis; uterine prolapse; ww - PSHx: 15:07 Tonsillectomy; Appendectomy; Cholecystectomy; ww - Immunization history:: Adult Immunizations up to date. - Social history:: Smoking status: Patient denies any tobacco usage or history of. ROS: 15:04 Positive for difficulty urinating, Negative for pelvic pain, flank pain. pm1 15:04 Constitutional: Negative for fever, chills, and weight loss, Cardiovascular: Negative for chest pain, palpitations, and edema, Respiratory: Negative for shortness of breath, cough, wheezing, and pleuritic chest pain, Abdomen/GI: Negative for abdominal pain, nausea, vomiting, diarrhea, and constipation, Skin: Negative for injury, rash, and discoloration, Neuro: Negative for headache, weakness, numbness, tingling, and seizure. 15:04 All other systems are negative. Exam: 15:04 Constitutional: This is a well developed, well nourished patient who is awake, alert, pm1 and in no acute distress. Head/Face: Normocephalic, atraumatic. 15:04 Back: No spinal tenderness. No costovertebral tenderness. Full range of motion. Skin: Warm, dry with normal turgor. Normal color with no rashes, no lesions, and no evidence of cellulitis. MS/ Extremity: Pulses equal, no cyanosis. Neurovascular intact. Full, normal range of motion. 15:04 Cardiovascular: Exam negative for acute changes, Rate: normal, Rhythm: regular, Pulses: no pulse deficits are appreciated. 15:04 Respiratory: Exam negative for acute changes, respiratory distress, splinting. 15:04 Abdomen/GI: Palpation: abdomen is soft and non-tender, in all quadrants. 15:04 Neuro: Exam negative for acute changes, Orientation: is normal, Mentation: is normal, Motor: is normal, moves all fours. Vital Signs: 15:05 BP 122 / 89; Pulse 82; Resp 18; Temp 97.9; Pulse Ox 99% on R/A; Weight 77.56 kg; Height ww 5 ft. 5 in. (165.10 cm); Pain 0/10; 15:05 Body Mass Index 28.46 (77.56 kg, 165.10 cm) ww MDM: 14:58 Patient medically screened. bhavin 15:43 ED course: Patient does not want the bladder scan. Patient was able to urinate by pm1 herself and wants to go home now. 15:43 Data reviewed: vital signs. Data interpreted: Pulse oximetry: on room air is 99 %. pm1 Interpretation: normal. Counseling: I had a detailed discussion with the patient and/or guardian regarding: the historical points, exam findings, and any diagnostic results supporting the discharge/admit diagnosis, the need for outpatient follow up, an OB/Gyne specialist, to return to the emergency department if symptoms worsen or persist or if there are any questions or concerns that arise at home. 06/08 15:41 Order name: Urine Dipstick-Ancillary; Complete Time: 15:43 EDMS 03 15:04 Order name: Bladder Scanner pm1 06/08 15:04 Order name: Urine Dipstick-Ancillary (obtain specimen); Complete Time: 15:41 pm1 Administered Medications: No medications were administered Disposition Summary: 06/08/21 15:50 Discharge Ordered Location: Home pm1 Problem: new pm1 Symptoms: have improved pm1 Condition: Stable pm1 Diagnosis - Pelvic organ prolapse pm1 Followup: pm1 - With: Emergency Department - When: As needed - Reason: Worsening of condition Followup: pm1 - With: Private Physician - When: 2 - 3 days - Reason: Recheck today's complaints, Continuance of care, Re-evaluation by your physician Discharge Instructions: - Discharge Summary Sheet pm1 - Pelvic Organ Prolapse pm1 Forms: - Medication Reconciliation Form pm1 - Thank You Letter pm1 - Antibiotic Education pm1 - Prescription Opioid Use pm1 - Work release form cb5 Addendum: 06/09/2021 18:26 Co-signature as Attending Physician, Cholo Wallace MD I agree with the assessment and c washburn plan of care. Signatures: Dispatcher [employer] EDCholo Marina MD MD cha Marinas, Patrick, MANAGER SOUND MANAGER SOUND pm1 Christy Sal RN RN ww Corrections: (The following items were deleted from the chart) 06/08 15:51 15:50 Uterovaginal prolapse, unspecified pm1 pm1
--- NOTE | 2021-06-08 15:51 | ER ---
Nurse's Notes [facility] Name: Torie Das Age: 61 yrs Sex: Female : 1960 Arrival Date: 06/08/2021 Time: 14:30 Bed 14 Private MD: Erwin Lowe Diagnosis: Pelvic organ prolapse Presentation: 06/08 15:05 Chief complaint: Patient states: Has a uterine prolapse and is now unable to urinate ww since this morning. Coronavirus screen: Vaccine status: Patient reports receiving the 2nd dose of the covid vaccine. Client denies travel out of the [place] in the last 14 days. Ebola Screen: Patient negative for fever greater than or equal to 101.5 degrees Fahrenheit, and additional compatible Ebola Virus Disease symptoms Patient denies travel to an Ebola-affected area in the 21 days before illness onset. Initial Sepsis Screen: Does the patient meet any 2 criteria? No. Patient's initial sepsis screen is negative. Does the patient have a suspected source of infection? No. Patient's initial sepsis screen is negative. Risk Assessment: Do you want to hurt yourself or someone else? Patient reports no desire to harm self or others. Onset of symptoms was June 08, 2021. 15:05 Method Of Arrival: Ambulatory ww 15:05 Acuity: PRISCILA 4 ww Triage Assessment: 15:07 General: Appears in no apparent distress. Behavior is calm, cooperative. Pain: Denies ww pain. EENT: No signs and/or symptoms were reported regarding the EENT system. Neuro: Level of Consciousness is awake, alert, obeys commands, Oriented to person, place, time, situation, Moves all extremities. Gait is steady, Speech is normal. Cardiovascular: Capillary refill < 3 seconds Patient's skin is warm and dry. Respiratory: Airway is patent Respiratory effort is even, unlabored, Respiratory pattern is regular, symmetrical. GI: No signs and/or symptoms were reported involving the gastrointestinal system. : Reports inability to void. Historical: - Allergies: 15:07 Nubain; ww 15:07 Sudafed; ww - PMHx: 15:07 Bipolar disorder; Diabetes - NIDDM; Pancreatitis; uterine prolapse; ww - PSHx: 15:07 Tonsillectomy; Appendectomy; Cholecystectomy; ww - Immunization history:: Adult Immunizations up to date. - Social history:: Smoking status: Patient denies any tobacco usage or history of. Screenin:07 Abuse screen: Denies threats or abuse. Denies injuries from another. Nutritional cb5 screening: No deficits noted. Tuberculosis screening: No symptoms or risk factors identified. 16:11 Fall Risk cb5 Assessment: 15:04 General: Appears uncomfortable, well groomed, Behavior is calm, cooperative. Pain: cb5 Complains of pain in pelvis Pain currently is 4 out of 10 on a pain scale. Neuro: No deficits noted. Level of Consciousness is awake, alert, obeys commands, Oriented to person, place, time, situation. Cardiovascular: No deficits noted. Respiratory: No deficits noted. GI: No deficits noted. : Reports. EENT: No deficits noted. Derm: No deficits noted. Musculoskeletal: No deficits noted. 16:10 General: pt declined vital signs, wants to go home, doesn't want any more testing.. cb5 Vital Signs: 15:05 BP 122 / 89; Pulse 82; Resp 18; Temp 97.9; Pulse Ox 99% on R/A; Weight 77.56 kg; Height ww 5 ft. 5 in. (165.10 cm); Pain 0/10; 15:05 Body Mass Index 28.46 (77.56 kg, 165.10 cm) ww ED Course: 14:30 Patient arrived in ED. as 14:31 Erwin Lowe DO is Private Physician. as 14:58 Jonas Perez NP is PHCP. pm1 14:58 Cholo Wallace MD is Attending Physician. pm1 15:03 Sanjuana Au, MARIJA is Primary Nurse. cb5 15:07 Triage completed. ww 15:07 No provider procedures requiring assistance completed. cb5 15:07 Patient has correct armband on for positive identification. Bed in low position. Call cb5 light in reach. Side rails up X 1. 15:08 Arm band placed on. cb5 16:11 Patient did not have IV access during this emergency room visit. cb5 Administered Medications: No medications were administered Outcome: 15:50 Discharge ordered by . pm1 16:11 Discharged to home cb5 16:11 Condition: stable 16:11 Discharge instructions given to 16:11 Patient left the ED. cb5 Signatures: Tracy Ho Patrick, NP MANAGER OF CONSTRUCTION pm1 Christy Sal RN RN ww Sanjuana Au, RN RN cb5
[2021-06-08 16:23] VITALS: BP 122/89; TEMP 97.9; O2SAT 99
== END 2021-06-08 16:11 | disposition home or self-care (01) ==
LOC: ER 14:29
DX: N81.4 Uterovaginal prolapse, unspecified (principal); E11.9 Type 2 diabetes mellitus without complications; Z88.6 Allergy status to analgesic agent; Z88.8 Allergy status to other drugs, medicaments and biological substances
CPT/HCPCS: 81003; 99281